=== PATIENT | male | born 1940 | race Caucasian/White ===

== ENCOUNTER 2018-03-12 09:48 | Inpatient (IN) | payer OTHER, MEDICARE ==
[2018-03-12] VITALS (8 sets, daily range): BP systolic 96–155; BP diastolic 56–68; PULSE 88–136; RESP 15–20; TEMP 98.5–99.1; O2SAT 95–98
[~2018-03-12] VITALS: Ht 162.6 cm; Wt 61.4 kg
[2018-03-12 10:39] LABS: AUTOMATED NEUTROPHIL # 8.8 TH/MM3 (1.8-7.7); BASOPHIL % 0.4 % (0.0-2.0); EOSINOPHIL % 0.2 % (0.0-4.0); HEMATOCRIT 35.5 % (39.0-51.0); HEMOGLOBIN 11.2 GM/DL (13.0-17.0); LYMPH % 10.4 % (9.0-44.0); LYMPHOCYTE # 1.2 TH/MM3 (1.0-4.8); MEAN CELL VOLUME 81.8 FL (80.0-100.0); MEAN CORPUSCULAR HEMOGLOBIN 25.8 PG (27.0-34.0); MEAN CORPUSCULAR HGB CONC 31.6 % (32.0-36.0); MONOCYTE # 1.2 TH/MM3 (0-0.9); PLATELET COUNT 305 TH/MM3 (150-450); RED BLOOD COUNT 4.34 MIL/MM3 (4.50-5.90); RED CELL DISTRIBUTION WIDTH 15.2 % (11.6-17.2); WHITE BLOOD COUNT 11.2 TH/MM3 (4.0-11.0)
--- NOTE | 2018-03-12 10:43 | PD ---
HPI Chief Complaint: General Weakness Time Seen by Provider: 10:18 Travel History International Travel<30 days: No Contact w/Intl Traveler<30days: No Traveled to known affect area: No History of Present Illness HPI This patient comes to the ER with his son and . He is extremely vague and unfortunately does not know much of his medical history. He comes for generalized weakness. He could not stand and he could not walk. Duration is 3- 4 days. He has been diagnosed with some type of cancer but is not sure what he thinks it might be bladder cancer but it is spread around to different parts of his body but he does not know where. He has chronic back pain. At does not seem any different than usual. He did have a temperature of 100.3 taken by paramedics. Current temperature 99.1. He denies productive cough or diarrhea or urinary complaints. Symptom severity is moderate. No alleviating factors. He thinks his cancer doctor is Dr. Britton. I put a call into him to see if I can obtain further information. PFSH Past Medical History GERD: Yes Hypertension: Yes Social History Alcohol Use: No Tobacco Use: No (quit 8 years ago) Substance Use: No Allergies-Medications (Allergen,Severity, Reaction): Coded Allergies: celecoxib (Verified Allergy, Unknown, 03/12/18) Review of Systems General / Constitutional: Positive: Fever Eyes: No: Visual changes HENT: No: Headaches Cardiovascular: No: Chest Pain or Discomfort Respiratory: No: Shortness of Breath Gastrointestinal: No: Abdominal Pain Genitourinary: No: Dysuria Musculoskeletal: Positive: Weakness, Pain Skin: No Rash Neurologic: Positive: Weakness Psychiatric: No: Depression Endocrine: No: Polydipsia Hematologic/Lymphatic: No: Easy Bruising Physical Exam Narrative GENERAL: Thin elderly well-developed patient with weakness and back pain . SKIN: Focused skin assessment reveals no rash and nodules. Skin is Warm and dry. HEAD: Atraumatic. Normocephalic. EYES: Pupils equal and round. No scleral icterus. No injection or drainage. ENT: No nasal bleeding or discharge. Mucous membranes pink and moist. NECK: Trachea midline. No JVD. CARDIOVASCULAR: Regular rate and rhythm. No murmur appreciated. RESPIRATORY: No accessory muscle use. Clear to auscultation. Breath sounds equal bilaterally. GASTROINTESTINAL: Abdomen soft, non-tender, nondistended. Hepatic and splenic margins not palpable. MUSCULOSKELETAL: No obvious deformities. No clubbing. No cyanosis. No edema. NEUROLOGICAL: Awake and alert. No obvious cranial nerve deficits. Motor strength exam reveals weakness of the left leg when compared to the right. Normal speech. Sensation exam is not consistent. Sometimes he has diminished sensation in the left leg but other times not. This is tested with both sharp and light touch PSYCHIATRIC: Appropriate mood and affect; insight and judgment is a bit diminished Data Data Last Documented VS Vital Signs Date Time Temp Pulse Resp B/P (MAP) Pulse Ox O2 Delivery O2 Flow Rate FiO2 03/12/18 13:24 15 03/12/18 12:00 94 112/56 (74) 97 Nasal Cannula 2.00 03/12/18 09:55 99.1 Orders Orders Complete Blood Count With Diff (03/12/18 10:18) Comprehensive Metabolic Panel (03/12/18 10:18) Lactic Acid Sepsis Protocol (03/12/18 10:18) Blood Culture (03/12/18 10:18) Iv Access Insert/Monitor (03/12/18 10:18) Oxygen Administration (03/12/18 10:18) Oximetry (03/12/18 10:18) Blood Glucose (03/12/18 10:18) Urinalysis - C+S If Indicated (03/12/18 10:32) Chest, Single Ap (03/12/18 ) Sodium Chlor 0.9% 1000 Ml Inj (Ns 1000 M (03/12/18 10:45) Mri L Spine W&W/O Contrast (03/12/18 ) Mri T Spine W & W/O Contrast (03/12/18 ) Ondansetron Inj (Zofran Inj) (03/12/18 12:30) Hydromorphone Pf Inj (Dilaudid Pf Inj) (03/12/18 12:30) Mri C Spine W&W/O Contrast (03/12/18 ) Gadobenate Dimeglimine Pf Inj (Multihanc (03/12/18 12:33) Urine Culture (03/12/18 15:25) Ct Brain W & W/O Iv Contrast (03/12/18 ) Labs Laboratory Tests Test 03/12/18 10:10 03/12/18 11:05 03/12/18 15:25 Lactic Acid Level 4.1 mmol/L White Blood Count 11.2 TH/MM3 Red Blood Count 4.34 MIL/MM3 Hemoglobin 11.2 GM/DL Hematocrit 35.5 % Mean Corpuscular Volume 81.8 FL Mean Corpuscular Hemoglobin 25.8 PG Mean Corpuscular Hemoglobin Concent 31.6 % Red Cell Distribution Width 15.2 % Platelet Count 305 TH/MM3 Mean Platelet Volume 8.0 FL Neutrophils (%) (Auto) 78.0 % Lymphocytes (%) (Auto) 10.4 % Monocytes (%) (Auto) 11.0 % Eosinophils (%) (Auto) 0.2 % Basophils (%) (Auto) 0.4 % Neutrophils # (Auto) 8.8 TH/MM3 Lymphocytes # (Auto) 1.2 TH/MM3 Monocytes # (Auto) 1.2 TH/MM3 Eosinophils # (Auto) 0.0 TH/MM3 Basophils # (Auto) 0.0 TH/MM3 CBC Comment AUTO DIFF Differential Comment AUTO DIFF CONFIRMED Ovalocytes 1+ Acanthocytes 1+ Blood Urea Nitrogen 34 MG/DL Creatinine 1.83 MG/DL Random Glucose 112 MG/DL Total Protein 8.0 GM/DL Albumin 2.6 GM/DL Calcium Level 10.2 MG/DL Alkaline Phosphatase 95 U/L Aspartate Amino Transf (AST/SGOT) 60 U/L Alanine Aminotransferase (ALT/SGPT) 29 U/L Total Bilirubin 0.5 MG/DL Sodium Level 134 MEQ/L Potassium Level 4.7 MEQ/L Chloride Level 95 MEQ/L Carbon Dioxide Level 30.8 MEQ/L Anion Gap 8 MEQ/L Estimat Glomerular Filtration Rate 36 ML/MIN Urine Color YELLOW Urine Turbidity HAZY Urine pH 6.0 Urine Specific [place] 1.015 Urine Protein 30 mg/dL Urine Glucose (UA) NEG mg/dL Urine Ketones NEG mg/dL Urine Occult Blood MOD Urine Nitrite NEG Urine Bilirubin NEG Urine Urobilinogen LESS THAN 2.0 MG/DL Urine Leukocyte Esterase MOD Urine RBC 52 /hpf Urine WBC 15 /hpf Urine Squamous Epithelial Cells <1 /hpf Urine Bacteria RARE /hpf Urine Hyaline Casts 7 /lpf Urine Granular Casts 7 /lpf Urine Mucus FEW /lpf Microscopic Urinalysis Comment CULTURE INDICATED MDM Medical Decision Making Medical Screen Exam Complete: Yes Emergency Medical Condition: Yes Medical Record Reviewed: Yes Differential Diagnosis Metastatic cancer, cord compression, myelopathy Narrative Course I have reviewed the patient's electronic medical record. Unfortunately there are no dictations on file to review. I spoke with Dr. Britton. He is going to check with his office to see if he is a patient of theirs but he cannot remember him off the top of his head. I have to be concerned with a new onset of myelopathy in this patient with definite leg weakness and history of metastatic cancer and back pain. Therefore I am going to order a workup to evaluate for his low-grade temperature and weakness as well has his potential cord compression with MRI of thoracic and lumbar spine. the patient's back pain is very low, Lumbar region Extensive workup was done. Catheterized urine has 15 white cells. Chest x-ray shows mainly atelectasis. I reviewed the labs. Etiology of the low-grade temperature is not entirely clear. He does have mildly elevated lactate His cervical and thoracic and lumbar spines were evaluated under MRI. He does have a severe medical problems in the thoracic region. He has moderate cord compression and canal stenosis.. I reviewed with the neurosurgeon who came down to the ER. He is reviewed the images and met with patient and and son. He had lengthy discussions with them and they do not want to pursue a surgical approach at this time. Patient will need to be hospitalized. I spoke with hospitalist who will do this. 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 I do not think he will do well. Hospitalist will address whether hospice is an appropriate pathway versus radiation and chemotherapy Critical Care Narrative Aggregate critical care time was 80 minutes. Time to perform other separately billable procedures was not included in the critical care time. My time did not include minutes spent treating any other patients simultaneously or on activities that did not directly contribute to the patient's treatment. The services I provided to this patient were to treat and/or prevent clinically significant deterioration that could result in: Cord compression, permanent neurologic deficit, paralysis I provided critical care services requiring my management, as noted below: Chart data review, documentation time, medication orders and management, vital sign assessments/reviewing monitor data, ordering and reviewing lab tests, ordering and interpreting/reviewing x-rays and diagnostic studies, care of the patient and discussion of the patient with the admitting physicians. Diagnosis Primary Impression: Spinal cord compression due to malignant neoplasm metastatic to spine Additional Impressions: Fever Qualified Codes: R50.9 - Fever, unspecified Myelopathy Admitting Information Admitting Physician Requests: Admit Manuel Jordan MD Mar 12, 2018 10:43
[2018-03-12] MEDS ORDERED: SODIUM CHLOR 0.9% 1000 ML INJ 1,000 ML IV ONE (10:45)
[2018-03-12 11:10] LABS: LACTIC ACID SEPSIS PROTOCOL 4.1 mmol/L (0.4-2.0)
--- NOTE | 2018-03-12 11:11 | RADRPT ---
EXAM DATE/TIME: 03/12/2018 10:33 [facility] COMPARISON: No previous studies available for comparison. INDICATIONS : Fever. MEDICAL HISTORY : Hypertension. Gastroesophageal reflux disease. SURGICAL HISTORY : None. ENCOUNTER: Initial ACUITY: 1 day PAIN SCORE: 0/10 LOCATION: Bilateral chest FINDINGS: There is a poor inspiratory result. The heart is normal. Bibasilar atelectasis and/or infiltrates are noted. Degenerative changes and scoliosis of the thoracic spine are noted. There is marked narrowing of the right subacromial space suggesting rotator cuff pathology. CONCLUSION: 1. Bibasilar atelectasis and/or infiltrates. 2. Marked narrowing of the right subacromial space suggesting rotator cuff pathology. 3. Degenerative changes and scoliosis of the thoracic spine. Shekhar Doan MD on March 12, 2018 at 11:07 Board Certified Radiologist. This report was verified electronically.
[2018-03-12 11:26] LABS: ACANTHOCYTES 1+ (NORMAL); OVALOCYTES 1+ (NORMAL)
[2018-03-12 11:46] LABS: ALBUMIN 2.6 GM/DL (3.4-5.0); ALT (GPT) 29 U/L (12-78); AST (GOT) 60 U/L (15-37); BICARBONATE 30.8 MEQ/L (21.0-32.0); BLOOD UREA NITROGEN 34 MG/DL (7-18); CALCIUM 10.2 MG/DL (8.5-10.1); CHLORIDE 95 MEQ/L (98-107); CREATININE 1.83 MG/DL (0.60-1.30); GLOMERULAR FILTRATION RATE 36 ML/MIN (>89); GLUCOSE,RANDOM 112 MG/DL (74-106); SODIUM (NA) 134 MEQ/L (136-145)
[2018-03-12 11:47] LABS: ALKALINE PHOSPHATASE 95 U/L (45-117); TOTAL BILIRUBIN ADULT 0.5 MG/DL (0.2-1.0)
[2018-03-12] MEDS ORDERED: ONDANSETRON HCL 4 MG/2 ML VIAL IV ONE (12:30)
[2018-03-12] MEDS ORDERED: HYDROmorphone HCL PF 2 MG/ML VIAL IVS ONE (12:30)
[2018-03-12] MEDS ORDERED: GADOBENATE DIM PF 529 MG/ML 5 ML VIAL (for RAD MRI) IV ONE (12:33)
--- NOTE | 2018-03-12 14:46 | RADRPT ---
EXAM DATE/TIME: 03/12/2018 12:25 [facility] COMPARISON: No previous studies available for comparison. INDICATIONS : Inability to ambulate. Hx of bladder ca, CONTRAST: 12 cc Multihance (gadobenate) IV MEDICAL HISTORY : Carcinoma, bladder. Gastroesophageal reflux disease. SURGICAL HISTORY : Right foot. ENCOUNTER: Initial ACUITY: 3 day PAIN SCORE: 5/10 LOCATION: neck TECHNIQUE: Multiplanar, multisequence MRI examination of the cervical spine was performed. FINDINGS: VERTEBRAE: Normal vertebral body height. Homogeneous marrow signal. ALIGNMENT: No evidence of subluxation. CORD: There is moderate canal stenosis at the C3-4 and C5-6 levels secondary to disc bulge and posterior el ement hypertrophy POST FOSSA: The cerebellar tonsils are normal in position. POST-CONTRAST: No abnormal areas of enhancement are seen. C2-C3: The thecal sac has a normal configuration. There is no evidence of disc herniation or spinal canal stenosis. The neural foramina are patent bilaterally. C3-C4: Broad-based bulge at C3-4 level with a moderate stenosis.. C4-C5: The thecal sac has a normal configuration. There is no evidence of disc herniation or spinal canal s tenosis. The neural foramina are patent bilaterally. C5-C6: Broad-based bulge at T5-6 level causes moderate canal stenosis. C6-C7: The thecal sac has a normal configuration. There is no evidence of disc herniation or spinal canal s tenosis. The neural foramina are patent bilaterally. C7-T1: The thecal sac has a normal configuration. There is no evidence of disc herniation or spinal canal s tenosis. The neural foramina are patent bilaterally. CONCLUSION: Moderate canal stenoses at the C3-4 and C5-6 levels. No evidence of cord edema. I don't see any abnor mal areas of enhancement to confirm metastatic disease to the cervical spine. James Lucas MD on March 12, 2018 at 14:42 Board Certified Radiologist. This report was verified electronically.
--- NOTE | 2018-03-12 15:04 | RADRPT ---
EXAM DATE/TIME: 03/12/2018 12:25 [facility] COMPARISON: No previous studies available for comparison. INDICATIONS : Inability to ambulate. Weakness with hx of bladder ca. CONTRAST: 12 cc Multihance (gadobenate) IV MEDICAL HISTORY : Carcinoma, bladder. Hypertension. Gastroesophageal reflux disease. SURGICAL HISTORY : Right foot. ENCOUNTER: Initial ACUITY: 3 day PAIN SCORE: 5/10 LOCATION: back TECHNIQUE: Multiplanar multisequence MRI of the thoracic spine was performed. FINDINGS: There is evidence of almost complete replacement of the marrow of the T12 vertebral body with expansi on of the vertebral body, left pedicle and left facet joint. There is retropulsion of the posterior w all of the vertebral body measuring approximately 8 mm as well as moderate to severe spinal stenosis and moderate cord compression at this level. Mild compression deformity of the T12 vertebral body is also noted. The findings are suggestive of metastatic disease at the T12 level. T1-T2: There is mild broad-based left paracentral disc bulge resulting in effacement of the anterior thecal sac but no spinal stenosis. T2-T3: The thecal sac has a normal diameter. No evidence of disc bulge or protrusion. T3-T4: The thecal sac has a normal diameter. No evidence of disc bulge or protrusion. T4-T5: The thecal sac has a normal diameter. No evidence of disc bulge or protrusion. T5-T6: The thecal sac has a normal diameter. No evidence of disc bulge or protrusion. T6-T7: The thecal sac has a normal diameter. No evidence of disc bulge or protrusion. T7-T8: The thecal sac has a normal diameter. No evidence of disc bulge or protrusion. T8-T9: The thecal sac has a normal diameter. No evidence of disc bulge or protrusion. T9-T10: The thecal sac has a normal diameter. No evidence of disc bulge or protrusion. T10-T11: The thecal sac has a normal diameter. No evidence of disc bulge or protrusion. T11-T12: The thecal sac has a normal diameter. No evidence of disc bulge or protrusion. T12-L1: The thecal sac has a normal diameter. No evidence of disc bulge or protrusion. CONCLUSION: 1. Almost complete replacement of the marrow of the T12 vertebral body with expansion of the vertebra l body, left pedicle and left facet joint. There is retropulsion of the posterior wall of the vertebr al body measuring approximately 8 mm as well as moderate to severe spinal stenosis and moderate cord compression at this level. Mild compression deformity of the T12 vertebral body is also noted. The fi ndings are suggestive of metastatic disease at the T12 level. 2. Mild broad-based left paracentral disc bulge at T1-2 resulting in effacement of the anterior theca l sac but no spinal stenosis. Shekhar Doan MD on March 12, 2018 at 14:54 Board Certified Radiologist. This report was verified electronically.
--- NOTE | 2018-03-12 15:18 | RADRPT ---
EXAM DATE/TIME: 03/12/2018 12:25 [facility] COMPARISON: MRI THORACIC SPINE W & W/O CONTRAST, March 12, 2018, 12:25. INDICATIONS : Inability to ambulate. Weakness with a hx of bladder ca. CONTRAST: 12 cc Multihance (gadobenate) IV MEDICAL HISTORY : Carcinoma, bladder. Hypertension. Gastroesophageal reflux disease. SURGICAL HISTORY : Right foot. ENCOUNTER: Initial ACUITY: 3 day PAIN SCORE: 5/10 LOCATION: back TECHNIQUE: Multiplanar multisequence MRI of the lumbar spine was performed with and without contrast. FINDINGS: There is diffuse marrow infiltration and expansion of the T12 vertebral body, left pedicle and left f acet with cord compression at this level consistent with metastatic disease which is described in mor e detail in the MRI of the thoracic spine report done the same day. There is an expansile mass arisin g from the spinous process of L3 also consistent with probable metastatic lesion. There is grade I an terolisthesis of L4 in relation to L5 and L3 in relation to L2. Disc space narrowing is noted at L1-2 , L2-3 and L3-4 and L4-5. L1-2: There is no spinal stenosis, disc bulge or herniation. The bilateral neural foraminal are patent. The facet joints and ligaments are unremarkable. L2-3: There is a minimal diffuse disc osteophyte complex as well as facet joint hypertrophy bilaterally res ulting in mild to moderate foraminal narrowing but no spinal stenosis. No focal disc herniation is no júnior. L3-4: There is moderate circumferential spinal stenosis and bilateral foraminal narrowing secondary to comb ination of diffuse disc osteophyte complex and facet joint hypertrophy and ligamentous laxity. No foc al disc herniation is noted. L4-5: There is severe circumferential spinal stenosis and moderate to severe bilateral foraminal narrowing secondary to a combination of grade I anterolisthesis of L4 in relation to L5, diffuse disc osteophyt e complex, facet joint hypertrophy and ligamentous laxity. No focal disc herniation is noted. L5-S1: There is a minimal diffuse disc bulge as well as facet joint hypertrophy bilaterally resulting in no significant spinal stenosis or neural foraminal narrowing. No focal disc herniation is noted. CONCLUSION: 1. Expansile masses involving the spinous process of L3 as well as the vertebral body, left pedicle a nd left facet of T12 consistent with metastatic disease. 2. Severe spinal stenosis and moderate to severe bilateral foraminal narrowing at L4-5. 3. Moderate spinal stenosis and moderate bilateral foraminal narrowing at L3-L4. 4. Mild to moderate bilateral foraminal narrowing at L2-3. 5. Grade I anterolisthesis of L4 in relation to L5 and L3 in relation to L2. 6. Diffuse degenerative disc disease throughout the lumbar spine. Shekhar Doan MD on March 12, 2018 at 15:02 Board Certified Radiologist. This report was verified electronically.
[2018-03-12 15:59] LABS: BACTERIA, URINE RARE /hpf; BILIRUBIN, URINE NEG (NEG); BLOOD, URINE MOD (NEG); GLUCOSE,URINE NEG (NEG); HYALINE CAST, URINE 7 /lpf (RARE); KETONE, URINE NEG (NEG); MUCUS URINE FEW /lpf (OCC); NITRITE,URINE NEG (NEG); SQUAMOUS EPITHELIAL CELL URINE <1 /hpf (0-5); URINE COLOR YELLOW (YELLW/STRAW); URINE LEUKOCYTE ESTERASE MOD (NEG)
--- NOTE | 2018-03-12 17:26 | HHI.NSPN ---
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 Lumbar involvement as well as spinal stenosis. Generalized metastatic disease. Recommendations: Have discussed the findings of the MRI with the and the son. Presently the patient is hallucinating is unable to make a decision. Have presented options of treatment to include surgical resection at the level of T12 and fusion. The family does not want to proceed with surgery at the present time. They understand that the patient can become completely paraplegic if no treatment is initiated at the present time Would recommend evaluation by oncology and radiation therapy. Should also have a CT of the brain with and without contrast or MRI of the brain because of his mental status. Discussed with the ER physician. Josué Birmingham MD Mar 12, 2018 17:26
[2018-03-12] MEDS ORDERED: HYDROmorphone HCL PF 0.5 MG/0.5 ML SYRINGE IV PUSH PRN ×3 (17:30)
[2018-03-12] MEDS ORDERED: ONDANSETRON HCL 4 MG/2 ML VIAL IVP PRN (17:30)
[2018-03-12] MEDS ORDERED: ACETAMINOPHEN 325 MG TAB PO PRN ×2 (17:30)
[2018-03-12] MEDS ORDERED: oxyCODONE/ACETAMINOPHEN 5 MG/325 MG TAB PO PRN (17:30)
[2018-03-12] MEDS ORDERED: NALOXONE HCL 0.4 MG/ML AMP IV PUSH PRN (17:30)
[2018-03-12] MEDS ORDERED: SENNOSIDES 8.6 MG TAB PO PRN (17:30)
[2018-03-12] MEDS ORDERED: SODIUM CHLORIDE 0.9% FLUSH 10 ML FLUSH IV FLUSH PRN (17:30)
[2018-03-12] MEDS ORDERED: BISACODYL 10 MG SUPP RECTAL PRN (17:30)
[2018-03-12] MEDS ORDERED: LACTULOSE SYRUP 20 GM/30 ML CUP PO PRN (17:30)
[2018-03-12] MEDS ORDERED: MAGNESIUM HYDROXIDE SUSP 30 ML CUP PO PRN (17:30)
[2018-03-12] MEDS ORDERED: cloNIDine HCL 0.1 MG TAB PO PRN (17:30)
[2018-03-12] MEDS ORDERED: METOCLOPRAMIDE HCL 10 MG/2 ML VIAL IV PUSH PRN (17:30)
[2018-03-12] MEDS ORDERED: PANTOPRAZOLE SOD 40 MG DELAYED RELEASE TAB PO ONE (17:30)
[2018-03-12] MEDS ORDERED: ENOXAPARIN SODIUM 40 MG/0.4 ML SYRINGE SQ SCH (18:00)
--- NOTE | 2018-03-12 18:02 | MB ---
cc: Josué TONY Jorge DATE: 03/12/2018 CHIEF COMPLAINT: Weakness. HISTORY OF PRESENT ILLNESS: This is a 77-year-old male patient diagnosed with bladder cancer who presents to the ER with a 9-day history of not being able to ambulate. The reports that the patient has been hallucinating on and off and at times becomes agitated. He also complains of pain in the back, but has history of chronic back pain. He was undergoing evaluation because of bladder cancer. He has had problems with urination and with defecation and now presents to the ER for further evaluation. reports he is a stage 4. PAST MEDICAL HISTORY: Remarkable for reflux and for hypertension. ALLERGIES: HE HAS AN ALLERGY TO CELEBREX. MEDICATIONS: 1. Lisinopril. 2. Omeprazole. 3. Aspirin. 4. Atenolol. 5. Atorvastatin. 6. Gabapentin. 7. Hydrocodone. 8. Magnesium 9. Sertraline 10. Multiple vitamins. SOCIAL HISTORY: He does not use alcohol, does not use tobacco at the present time. He quit approximately 8 years ago. Denies any substance abuse. REVIEW OF SYSTEMS: Not obtainable at the present time. PHYSICAL EXAMINATION: VITAL SIGNS: Temperature of 99.1, pulse of 94, respirations of 15, pulse oximetry of 97, blood pressure 112/56. GENERAL: Shows a thin male in mild distress, somewhat agitated and rambling. HEENT: Unremarkable. NECK: Supple. Good carotid pulses bilaterally. CHEST: Symmetrical. LUNGS: Clear. HEART: Shows a regular rhythm with normal heart sounds. ABDOMEN: Soft and nontender. BACK: examination of the back shows tenderness posteriorly about the lumbar thoracic junction. SKIN: Clear. NEUROLOGIC: The patient is alert and awake. He follows commands well. He is confused. He is somewhat agitated and tends to ramble. He has a fluent speech. He recognizes his family. Cranial nerves 2-12 are intact. Motor exam is 5+/5 in the upper extremities. He appears to have a proximal weakness at about 3+/5 in the right leg and about 2-3+/5 in the left leg and distally his strength is about a 2-3+/5. Sensory exam is intact to touch. Deep tendon reflexes are 2+ in the upper extremities and 2+ at the knees and 1+ at the ankles. IMAGING STUDIES: Review of an MRI of the cervical spine shows evidence of degenerative changes with evidence of stenosis at C3-C4 and C5-C6. MRI of the thoracic spine shows severe involvement of the vertebral body at the level of T12 with expansion of the posterior wall and producing moderate cord compression and severe stenosis. There appears to be also involvement of the posterior structures of T12 with involvement of the paraspinal area MRI of the lumbar spine shows involvement of the spinous process of L3 and T12 as well with some spinal stenosis at the level of L4-L5 and some anterolisthesis of L4-5 and L2-3 and degenerative disk disease throughout. OVERALL IMPRESSION: 1. 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 2. Generalized metastatic disease Findings of the MRI have been discussed with the and the son because of the patient's present mental state. Surgical intervention has been recommended. They have declined surgical procedure at this time. They understand that the patient can become completely paralyzed and paraplegic without recovery if he does not undergo surgery presently. Because of the patient's mental status, I would recommend a CT scan of the brain with and without contrast or MRI of the brain. He should undergo evaluation by oncology and radiation therapy. Josué HAGER/ , 05:36 PM , 06:01 PM MTDSheri
[2018-03-12] MEDS ORDERED: ZOLO100T PO (18:09)
[2018-03-12] MEDS ORDERED: MULT-65 PO (18:09)
[2018-03-12] MEDS ORDERED: CYAN25005 PO (18:09)
[2018-03-12] MEDS ORDERED: LISI2.5T3 PO (18:09)
[2018-03-12] MEDS ORDERED: CINN500C2 PO (18:09)
[2018-03-12] MEDS ORDERED: MAGN400T24 PO (18:09)
[2018-03-12] MEDS ORDERED: OMEP20TA93 PO (18:09)
[2018-03-12] MEDS ORDERED: SULF500 PO (18:09)
[2018-03-12] MEDS ORDERED: E 101000 PO (18:09)
[2018-03-12] MEDS ORDERED: VITA250T3 PO (18:09)
[2018-03-12] MEDS ORDERED: NEUR600T PO (18:09)
[2018-03-12] MEDS ORDERED: HAIR,SKIN,NAILS PO (18:09)
[2018-03-12] MEDS ORDERED: VITA1000 PO (18:09)
[2018-03-12] MEDS ORDERED: FISH OIL 360MG PO (18:09)
[2018-03-12] MEDS ORDERED: METO1TAB43 PO (18:09)
[2018-03-12] MEDS ORDERED: ATOR40TA16 PO (18:09)
[2018-03-12] MEDS ORDERED: ASPI81TA16 PO (18:09)
[2018-03-12] MEDS ORDERED: FISH100020 PO (18:12)
[2018-03-12] MEDS: SODIUM CHLOR 0.9% 1000 ML INJ 1,000 ML IV SCH (18:50)
--- NOTE | 2018-03-12 19:32 | HHI.HP ---
HPI Service [facility] Primary Care Physician Yumiko Malone M.D. Admission Diagnosis spinal cord compression from malig met lesion Diagnoses: (1) Encephalopathy Diagnosis: Principal (2) Generalized weakness Diagnosis: Principal (3) Spinal cord compression due to malignant neoplasm metastatic to spine Diagnosis: Principal (4) UTI (urinary tract infection) Diagnosis: Principal (5) Urothelial cancer Diagnosis: Principal (6) Renal insufficiency Diagnosis: Principal (7) Lactic acidosis Diagnosis: Principal Travel History International Travel<30 Days: No Contact w/Intl Traveler <30 Da: No Traveled to Known Affected Are: No History of Present Illness This is a 77-year-old male with PMH of Urothelial CA, HTN and GERD who was brought to the ER by his son and for complaints of generalized weakness in addition to AMS. History is very limited as pt is unable to provide much information, no family available at this time. Per records, pt following w/ Dr. Luque w/ Urology, s/p Cystoscopy w/ TURBT 03/03/18, h/o Urothelial CA for which he follows w/ Dr. Britton. Pt has apparently had progressive weakness, now unable to ambulate. Also noted to be more confused. On arrival, BP 97/65, HR 113, O2 sat 96% on 2L NC, TAB 9.1. WBC 11.2. Creatinine 1.83, no previous labs for comparison. Lactic Acid 4.1. UA positive for UTI. CXR with bibasilar atelectasis. MRI C-spine moderate canal stenosis C3-C4 and C5-C6, no evidence of cord edema. MRI T-spine almost complete replacement of marrow of T12 vertebral body with expansion, retropulsion and posterior wall of vertebral body, mild compression deformity T12, findings suggestive of metastatic disease at T12 level. MRI L-spine expansile masses involving spinous processes of L3 is well as vertebral body, severe spinal stenosis and moderate severe bilateral foraminal narrowing L4-L5. S/p eval by Dr. Birmingham w/ NxSx, recommendation for surgical intervention, however family has declined surgical intervention. Review of Systems Except as stated in HPI: all other systems reviewed are Neg ROS: 14 point review of systems otherwise negative. Past Family Social History Past Medical History PMH: Urothelial CA, HTN and GERD Past Surgical History PAST SURGICAL HISTORY: Right Foot Surgery Allergies: Coded Allergies: celecoxib (Verified Allergy, Unknown, 03/12/18) Family History PAST FAMILY HISTORY: Reviewed. No h/o DM or CAD Social History PAST SOCIAL HISTORY: Negative for alcohol or drugs. Quit tobacco 8 years ago. Physical Exam Vital Signs Vital Signs Date Time Temp Pulse Resp B/P (MAP) Pulse Ox O2 Delivery O2 Flow Rate FiO2 03/12/18 19:20 88 20 120/57 (78) 98 Nasal Cannula 2.00 03/12/18 17:30 89 15 106/60 (75) 97 Nasal Cannula 2.00 03/12/18 13:30 90 15 104/62 (76) 97 Nasal Cannula 2.00 03/12/18 13:24 15 03/12/18 12:00 94 15 112/56 (74) 97 Nasal Cannula 2.00 03/12/18 11:00 102 16 96/65 (75) 96 Nasal Cannula 2.00 03/12/18 10:00 112 16 98/68 (78) 98 Nasal Cannula 2.00 03/12/18 09:55 99.1 113 16 97/65 (76) 98 03/12/18 09:55 110 16 96 Nasal Cannula 2.00 03/12/18 09:55 96 Nasal Cannula 2.00 Physical Exam PE: GENERAL: Thin elderly white male in no acute distress, fidgety, anxious. Confused. HEENT: PERRLA, EOMI. No scleral icterus or conjunctival pallor. No lid lag or facial droop. CARDIOVASCULAR: Regular rate and rhythm. No obvious murmurs to auscultation. No chest tenderness to palpation. RESPIRATORY: No obvious rhonchi or wheezing. Clear to auscultation. Breath sounds equal bilaterally. GASTROINTESTINAL: Abdomen soft, non-tender, nondistended. BS normal. MUSCULOSKELETAL: Extremities without clubbing, cyanosis, or edema. No obvious deformities. NEUROLOGICAL: Awake, alert, confused. No focal neurologic deficits. Moving both upper and lower extremities spontaneously. Laboratory Laboratory Tests Test 03/12/18 10:10 03/12/18 11:05 03/12/18 15:25 Lactic Acid Level 4.1 White Blood Count 11.2 Red Blood Count 4.34 Hemoglobin 11.2 Hematocrit 35.5 Mean Corpuscular Volume 81.8 Mean Corpuscular Hemoglobin 25.8 Mean Corpuscular Hemoglobin Concent 31.6 Red Cell Distribution Width 15.2 Platelet Count 305 Mean Platelet Volume 8.0 Neutrophils (%) (Auto) 78.0 Lymphocytes (%) (Auto) 10.4 Monocytes (%) (Auto) 11.0 Eosinophils (%) (Auto) 0.2 Basophils (%) (Auto) 0.4 Neutrophils # (Auto) 8.8 Lymphocytes # (Auto) 1.2 Monocytes # (Auto) 1.2 Eosinophils # (Auto) 0.0 Basophils # (Auto) 0.0 CBC Comment AUTO DIFF Differential Comment AUTO DIFF CONFIRMED Ovalocytes 1+ Acanthocytes 1+ Blood Urea Nitrogen 34 Creatinine 1.83 Random Glucose 112 Total Protein 8.0 Albumin 2.6 Calcium Level 10.2 Alkaline Phosphatase 95 Aspartate Amino Transf (AST/SGOT) 60 Alanine Aminotransferase (ALT/SGPT) 29 Total Bilirubin 0.5 Sodium Level 134 Potassium Level 4.7 Chloride Level 95 Carbon Dioxide Level 30.8 Anion Gap 8 Estimat Glomerular Filtration Rate 36 Urine Color YELLOW Urine Turbidity HAZY Urine pH 6.0 Urine Specific Horicon 1.015 Urine Protein 30 Urine Glucose (UA) NEG Urine Ketones NEG Urine Occult Blood MOD Urine Nitrite NEG Urine Bilirubin NEG Urine Urobilinogen LESS THAN 2.0 Urine Leukocyte Esterase MOD Urine RBC 52 Urine WBC 15 Urine Squamous Epithelial Cells <1 Urine Bacteria RARE Urine Hyaline Casts 7 Urine Granular Casts 7 Urine Mucus FEW Microscopic Urinalysis Comment CULTURE INDICATED Date/Time Source Procedure Growth Status 03/12/18 11:05 Blood Peripheral Aerobic Blood Culture Pending Received 03/12/18 11:05 Blood Peripheral Anaerobic Blood Culture Pending Received 03/12/18 15:25 Urine Clean Catch Urine Culture Pending Received Result Diagram: 03/12/18 1105 03/12/18 1105 Caprini VTE Risk Assessment Caprini VTE Risk Assessment: No/Low Risk (score <= 1) Caprini Risk Assessment Model Point Value = 1 Point Value = 2 Point Value = 3 Point Value = 5 Age 41-60 Minor surgery BMI > 25 kg/m2 Swollen legs Varicose veins or History of unexplained or recurrent spontaneous Oral contraceptives or hormone replacement Sepsis (< 1 month) Serious lung disease, including pneumonia (< 1 month) Abnormal pulmonary function Acute myocardial infarction Congestive heart failure (< 1 month) History of inflammatory bowel disease Medical patient at bed rest Age 61-74 Arthroscopic surgery Major open surgery (> 45 min) Laparoscopic surgery (> 45 min) Malignancy Confined to bed (> 72 hours) Immobilizing plaster cast Central venous access Age >= 75 History of VTE Family history of VTE Factor V Leiden Prothrombin [id number] Lupus anticoagulant Anticardiolipin antibodies Elevated serum homocysteine Heparin-induced thrombocytopenia Other congenital or acquired thrombophilia Stroke (< 1 month) Elective arthroplasty Hip, pelvis, or leg fracture Acute spinal cord injury (< 1 month) Prophylaxis Regimen Total Risk Factor Score Risk Level Prophylaxis Regimen 0-1 Low Early ambulation 2 Moderate Order ONE of the following: *Sequential Compression Device (SCD) *Heparin 5000 units SQ BID 3-4 Higher Order ONE of the following medications: *Heparin 5000 units SQ TID *Enoxaparin/Lovenox 40 mg SQ daily (WT < 150 kg, CrCl > 30 mL/min) *Enoxaparin/Lovenox 30 mg SQ daily (WT < 150 kg, CrCl > 10-29 mL/min) *Enoxaparin/Lovenox 30 mg SQ BID (WT < 150 kg, CrCl > 30 mL/min) AND/OR *Sequential Compression Device (SCD) 5 or more Highest Order ONE of the following medications: *Heparin 5000 units SQ TID (Preferred with Epidurals) *Enoxaparin/Lovenox 40 mg SQ daily (WT < 150 kg, CrCl > 30 mL/min) *Enoxaparin/Lovenox 30 mg SQ daily (WT < 150 kg, CrCl > 10-29 mL/min) *Enoxaparin/Lovenox 30 mg SQ BID (WT < 150 kg, CrCl > 30 mL/min) AND *Sequential Compression Device (SCD) Assessment and Plan Problem List: (1) Encephalopathy ICD Code: G93.40 - Encephalopathy, unspecified (2) Generalized weakness ICD Code: R53.1 - Weakness (3) Spinal cord compression due to malignant neoplasm metastatic to spine ICD Code: G95.20 - Unspecified cord compression; C79.51 - Secondary malignant neoplasm of bone Status: Acute (4) Lactic acidosis ICD Code: E87.2 - Acidosis (5) Renal insufficiency ICD Code: N28.9 - Disorder of kidney and ureter, unspecified (6) UTI (urinary tract infection) ICD Code: N39.0 - Urinary tract infection, site not specified (7) Urothelial cancer ICD Code: C68.9 - Malignant neoplasm of urinary organ, unspecified Assessment and Plan A/P: 1. Encephalopathy: +confusion on exam, baseline unknown, family reports worsening confusion over 3-4 days, +UTI possibly contributing to confusion. In light of metastatic CA, will obtain MRI Brain to eval for possible DRUG AND ALCOHOL TREATMENT SPECIALIST mets. Hold anticoagulation for now. Neuro checks. 2. Generalized Weakness: progressive, now unable to ambulate per report, likely secondary to T12 compression from extensive metastatic disease. PT for eval/tx. 3. T12 Compression: secondary to underlying metastatic disease, MRI T/L-Spine w/ almost complete replacement of marrow of T12 by metastatic disease, severe spinal stenosis L4-5, s/p eval by Dr. Birmingham, recommendation for surgical intervention to prevent complete paralysis, however family has declined. 4. Urothelial CA: following w/ Dr. Luque w/ Urology and Dr. Britton as outpatient, s/p eval by Dr. Lerner, will follow up recommendations. 5. Lactic Acidosis: Lactate 4.1, s/p IVF, will recheck Lactic Acid for trend. 6. UTI: U/a w/ UTI, start Rocephin IV, IVF for hydration. 7. Renal Insufficiency: Creatinine 1.83, no previous labs for comparison, IVF for hydration, repeat labs in a.m. 8. DVT Prophylaxis: Hold anticoagulation for MRI Brain to eval for DRUG AND ALCOHOL TREATMENT SPECIALIST mets. 9. Social work for d/c planning as needed. 10. Case discussed w/ ER physician at length, labs/records/imaging reviewed by me. Physician Certification 2 Midnight Certification Type: Admission for Inpatient Services Order for Inpatient Services The services are ordered in accordance with Medicare regulations or non- Medicare payer requirements, as applicable. In the case of services not specified as inpatient-only, they are appropriately provided as inpatient services in accordance with the 2-midnight benchmark. Estimated LOS (days): 2 days is the estimated time the patient will need to remain in the hospital, assuming treatment plan goals are met and no additional complications. Post-Hospital Plan: Not yet determined Cherie Lu MD Mar 12, 2018 19:32
[2018-03-12] MEDS: SODIUM CHLORIDE 0.9% FLUSH 10 ML FLUSH IV FLUSH SCH (21:00)
[2018-03-12] MEDS ORDERED: cefTRIAXone INJ 1,000 MG in SODIUM CHLORIDE 0.9% INJ 100 ML IV SCH (21:00)
[2018-03-12] MEDS: DOCUSATE SODIUM 50 MG/SENNA 8.6 MG TAB PO SCH (21:00)
[2018-03-12] MEDS: oxyCODONE/ACETAMINOPHEN 10 MG/325 MG TAB PO PRN (22:01)
[2018-03-12] MEDS ORDERED: LORazepam 2 MG/ML VIAL IV PUSH ONE (23:15)
[2018-03-13] VITALS (11 sets, daily range): BP systolic 140–154; BP diastolic 74–86; PULSE 77–126; RESP 19–21; TEMP 98.1–99; O2SAT 94–97
--- NOTE | 2018-03-13 00:55 | MB ---
cc: Saniya Lerner MD DATE: 03/12/2018 CHIEF COMPLAINT: 1. Bilateral lower extremity weakness. 2. Spinal cord compression. 3. Metastatic bladder cancer. HISTORY OF PRESENT ILLNESS: Mr. Moore is a 77-year-old gentleman with a history of chronic back pain, hypertension, hyperlipidemia, renal stones and anxiety who has previously established care in clinic with my colleague, Dr. Britton, who presents to the emergency room for further evaluation and management of bilateral lower extremity weakness. His cancer history began when he began to have intermittent hematuria over the past 3 years. Unfortunately, he did not seek medical attention. Approximately January of 2017, he began to feel fatigue and weakness. Around 09/2017 he was getting progressively worse and having unintentional weight loss and persistent hematuria. He was referred to Dr. Michaels. CT scan showed an isodense mass in the right posterolateral aspect of the bladder near the right distal ureter. He was also noted to have large multicystic multiloculated masses in the right kidney. There were also multiple pulmonary nodules noted. CT scan of the chest confirmed numerous noncalcified pulmonary nodules, mostly subcentimeter, largest measuring 1.2 cm in the lingula. He was then sent for a PET scan. PET scan found a 4.1 cm right-sided bladder mass causing right-sided hydroureter with diffuse hypermetabolism. There was also abnormal morphology of the enlarged right kidney with perinephric nodularity and right retroperitoneal nodularity concerning for high-grade obstruction with tumor involvement. There were multiple lung nodules with a minimally to moderately hypermetabolic uptake concerning for pulmonary metastasis. There was also a hypermetabolic lytic lesion in T12 vertebral body and L3 spinous process. There also were a few hypermetabolic hepatic lesions concerning for hepatic metastatic disease. From my review of the records that we have available, we do not have a pathologic of urothelial cancer. Upon my seeing him on Thursday evening, there is no family present at baseline and the patient is confused and encephalopathic. Much of the history is obtained from chart review from [facility]. The patient was brought to the emergency room with general weakness and altered mental status. Per record review, he had a TURBT on 03/03 which was found to be urothelial cancer. He has had progressively worsening weakness and is now unable to ambulate and is very confused. MRI of the T-spine showed almost complete replacement of the marrow of the T12 vertebral body with extension retropulsion and posterior wall of the vertebral body mild compression deformity suggestive of metastatic disease at T12. MRI of the L-spine with expansile mass involving the spinous process of L3 as well as the vertebral body, severe spinal stenosis, and moderate to severe bilateral foraminal narrowing. He has been seen by the neurosurgery service, and per report, family has declined surgical intervention. LABORATORY STUDIES: White blood cell count of 11.2, hemoglobin 11.2, platelet count 305,000 with an ANC of 8.8. Chemistry studies with a lactic acid of 4.1, total bilirubin of 0.5, AST 60, ALT 29, alkaline phosphatase is 95, albumin is 2.6, calcium is 10.2 with a corrected calcium of 11.2, creatinine is 1.83. Baseline with white blood cell count 6.2, hemoglobin 11.3, platelet count 278, creatinine 1.24, and calcium 9.8; this is from labs that were drawn in early February. REVIEW OF SYSTEMS: Unable to obtain due to patient's mental status. PAST MEDICAL HISTORY: 1. Anxiety. 2. Chronic back pain. 3. Hypertension. 4. Hyperlipidemia. 5. Renal stones. PAST SURGICAL HISTORY: Colonoscopy, right foot surgery, TURBT. FAMILY HISTORY: Mother is . Father is from prostate cancer. SOCIAL HISTORY: He is . Former smoker. No history of alcohol use. ALLERGIES: CELEBREX. PHYSICAL EXAMINATION: GENERAL: Thin, chronically ill-appearing man in no distress. HEENT: Head is normocephalic, atraumatic. Eyes: PERRLA, EOMI. No scleral icterus. NECK: Supple. No lymphadenopathy. HEMATOLOGIC: No bruising. RESPIRATORY: Clear to auscultation bilaterally. CARDIOVASCULAR: Regular rate and rhythm. No murmurs. LUNGS: Clear to auscultation bilaterally. ABDOMEN: Soft, nontender, nondistended. Bowel sounds present. Extremities with no edema. NEUROLOGICAL: Bilateral lower extremity weakness, unable to lift either leg up off the bed. PSYCHIATRIC: Answers questions inappropriately, confused, oriented to self. ASSESSMENT AND PLAN: 1. Metastatic urothelial cancer of the bladder: Do not currently have pathology report, but this is per report from Dr. Michaels's notes from recent procedure. Family has declined surgical intervention. At this point in time, the patient is unlikely to be a candidate for aggressive therapy. Unable to discuss goals of care with the patient, and family is not at bedside. Palliative care consult in place. Agree with this consult. 2. Encephalopathy: MRI brain is pending. Primary team notes that the patient has a UTI, which could certainly be contributing to his mental status. 3. T12 compression fracture and spinal cord compromise due to underlying metastatic disease: The family has declined surgical intervention. 4. Elevated creatinine, elevated calcium: Agree with IV fluids. Inpatient oncology team will continue to follow. MD TAMIKA Fox/RC , 10:47 PM , 12:54 AM MTDD
[2018-03-13] MEDS: SODIUM CHLOR 0.9% 1000 ML INJ 1,000 ML IV SCH ×3 (04:00→23:59)
[2018-03-13] MEDS: LORazepam 2 MG/ML VIAL IV PUSH PRN ×3 (04:22→08:31)
[2018-03-13 05:22] LABS: BASOPHIL # 0.1 TH/MM3 (0-0.2); BASOPHIL % 0.9 % (0.0-2.0); EOSINOPHIL # 0.1 TH/MM3 (0-0.4); EOSINOPHIL % 0.7 % (0.0-4.0); HEMATOCRIT 29.7 % (39.0-51.0); HEMOGLOBIN 9.8 GM/DL (13.0-17.0); LYMPH % 13.3 % (9.0-44.0); LYMPHOCYTE # 1.1 TH/MM3 (1.0-4.8); MEAN CELL VOLUME 80.4 FL (80.0-100.0); MEAN CORPUSCULAR HEMOGLOBIN 26.5 PG (27.0-34.0); MEAN PLATELET VOLUME 7.8 FL (7.0-11.0); MONO % 10.1 % (0.0-8.0); MONOCYTE # 0.8 TH/MM3 (0-0.9); PLATELET COUNT 349 TH/MM3 (150-450); RED CELL DISTRIBUTION WIDTH 14.6 % (11.6-17.2)
[2018-03-13 05:50] LABS: ALBUMIN 2.5 GM/DL (3.4-5.0); AST (GOT) 38 U/L (15-37); BICARBONATE 27.5 MEQ/L (21.0-32.0); BLOOD UREA NITROGEN 25 MG/DL (7-18); CALCIUM 9.6 MG/DL (8.5-10.1); CHLORIDE 102 MEQ/L (98-107); CREATININE 1.14 MG/DL (0.60-1.30); GLOMERULAR FILTRATION RATE 63 ML/MIN (>89); GLUCOSE,RANDOM 87 MG/DL (74-106); MAGNESIUM 1.9 MG/DL (1.5-2.5); SODIUM (NA) 138 MEQ/L (136-145)
[2018-03-13 05:59] LABS: ALKALINE PHOSPHATASE 75 U/L (45-117); ALT (GPT) 24 U/L (12-78); FREE T4 1.51 NG/DL (0.76-1.46); PHOSPHORUS 2.2 MG/DL (2.5-4.9); TOTAL BILIRUBIN ADULT 0.4 MG/DL (0.2-1.0); TOTAL PROTEIN 6.8 GM/DL (6.4-8.2)
[2018-03-13] MEDS: SODIUM CHLORIDE 0.9% FLUSH 10 ML FLUSH IV FLUSH SCH ×2 (07:48→22:01)
[2018-03-13] MEDS: DOCUSATE SODIUM 50 MG/SENNA 8.6 MG TAB PO SCH ×2 (07:48→21:00)
[2018-03-13] MEDS: PANTOPRAZOLE SOD 40 MG DELAYED RELEASE TAB PO SCH (07:48)
--- NOTE | 2018-03-13 09:41 | RADRPT ---
EXAM DATE/TIME: 03/13/2018 09:02 [place] COMPARISON: MRI THORACIC SPINE W & W/O CONTRAST, March 12, 2018, 12:25. MRI LUMBAR SPINE W & W/O CONTRAST, March 12, 2018, 12:25. MRI CERVICAL SPINE W & W/O CONTRAST, March 12, 2018, 12:25. INDICATIONS : Mass. CONTRAST: 13 cc Omniscan (gadodiamide) IV MEDICAL HISTORY : Hypertension. Carcinoma, bladder. SURGICAL HISTORY : Right foot. ENCOUNTER: Initial ACUITY: 1 day PAIN SCORE: 0/10 LOCATION: cranial TECHNIQUE: Multiplanar, multisequence MRI of the brain was performed both prior to and following the administrat ion of paramagnetic contrast. FINDINGS: Diffusion weighted images demonstrate no evidence for acute infarction. There is motion artifact iden tified. This limits the study. There is moderate increased flair signal in the bilateral periventricu lar white matter greatest posteriorly. There is no evidence of intracranial hemorrhage. No obvious ma ss. No abnormal areas of enhancement are identified. CONCLUSION: Significant motion artifact with white matter disease and no evidence for mass on this exam. Zack Draper MD on March 13, 2018 at 9:37 Board Certified Radiologist. This report was verified electronically.
[2018-03-13] MEDS ORDERED: GADODIAMIDE PF 287 MG/ML 20 ML VIAL (for RAD MRI) IVCONTRAST ONE (09:43)
[2018-03-13 10:47] LABS: HEMOGLOBIN A1C 5.7 % (4.3-6.0)
--- NOTE | 2018-03-13 11:28 | HHI.PR ---
Subjective Remarks Patient is profoundly lethargic, very confused. Restless. Unable to provide any history. I attempted to call next of kin in the chart, no answer and unable to leave voicemail. I later met Shraddha his and one of his sons at bedside. Objective Vitals Vital Signs Date Time Temp Pulse Resp B/P (MAP) Pulse Ox O2 Delivery O2 Flow Rate FiO2 03/13/18 08:04 98.6 77 19 150/77 (101) 97 03/13/18 08:01 106 03/13/18 04:45 98.3 126 20 140/86 (104) 94 03/13/18 01:20 Nasal Cannula 2.00 03/13/18 00:46 98.4 100 20 146/76 (99) 94 03/13/18 00:15 97 03/12/18 21:09 98.5 136 20 155/63 (93) 95 03/12/18 19:56 03/12/18 19:20 88 20 120/57 (78) 98 Nasal Cannula 2.00 03/12/18 17:30 89 15 106/60 (75) 97 Nasal Cannula 2.00 03/12/18 13:30 90 15 104/62 (76) 97 Nasal Cannula 2.00 03/12/18 13:24 15 03/12/18 12:00 94 15 112/56 (74) 97 Nasal Cannula 2.00 I/O 03/12/18 03/12/18 03/12/18 03/13/18 03/13/18 03/13/18 07:00 15:00 23:00 07:00 15:00 23:00 Intake Total 1000 ml 1055 ml Balance 1000 ml 1055 ml Intake IV Total 1000 ml 1055 ml # Voids 1 Result Diagram: 03/13/18 0500 03/13/18 0500 Imaging Last Impressions Brain MRI 03/13/18 0000 Signed Impressions: Service Date/Time: Tuesday, March 13, 2018 09:02 - CONCLUSION: Significant motion artifact with white matter disease and no evidence for mass on this exam. Zack Draper MD Thoracic Spine MRI 03/12/18 0000 Signed Impressions: Service Date/Time: Monday, March 12, 2018 12:25 - CONCLUSION: 1. Almost complete replacement of the marrow of the T12 vertebral body with expansion of the vertebral body, left pedicle and left facet joint. There is retropulsion of the posterior wall of the vertebral body measuring approximately 8 mm as well as moderate to severe spinal stenosis and moderate cord compression at this level. Mild compression deformity of the T12 vertebral body is also noted. The findings are suggestive of metastatic disease at the T12 level. 2. Mild broad-based left paracentral disc bulge at T1-2 resulting in effacement of the anterior thecal sac but no spinal stenosis. Shekhar Doan MD Lumbar Spine MRI 03/12/18 0000 Signed Impressions: Service Date/Time: Monday, March 12, 2018 12:25 - CONCLUSION: 1. Expansile masses involving the spinous process of L3 as well as the vertebral body, left pedicle and left facet of T12 consistent with metastatic disease. 2. Severe spinal stenosis and moderate to severe bilateral foraminal narrowing at L4-5. 3. Moderate spinal stenosis and moderate bilateral foraminal narrowing at L3- L4. 4. Mild to moderate bilateral foraminal narrowing at L2-3. 5. Grade I anterolisthesis of L4 in relation to L5 and L3 in relation to L2. 6. Diffuse degenerative disc disease throughout the lumbar spine. Shekhar Doan MD Chest X-Ray 03/12/18 0000 Signed Impressions: Service Date/Time: Monday, March 12, 2018 10:33 - CONCLUSION: 1. Bibasilar atelectasis and/or infiltrates. 2. Marked narrowing of the right subacromial space suggesting rotator cuff pathology. 3. Degenerative changes and scoliosis of the thoracic spine. Shekhar Doan MD Cervical Spine MRI 03/12/18 0000 Signed Impressions: Service Date/Time: Monday, March 12, 2018 12:25 - CONCLUSION: Moderate canal stenoses at the C3-4 and C5-6 levels. No evidence of cord edema. I don't see any abnormal areas of enhancement to confirm metastatic disease to the cervical spine. James Lucas MD A/P Problem List: (1) Encephalopathy ICD Code: G93.40 - Encephalopathy, unspecified (2) Generalized weakness ICD Code: R53.1 - Weakness (3) Spinal cord compression due to malignant neoplasm metastatic to spine ICD Code: G95.20 - Unspecified cord compression; C79.51 - Secondary malignant neoplasm of bone Status: Acute (4) Lactic acidosis ICD Code: E87.2 - Acidosis (5) Renal insufficiency ICD Code: N28.9 - Disorder of kidney and ureter, unspecified (6) UTI (urinary tract infection) ICD Code: N39.0 - Urinary tract infection, site not specified (7) Urothelial cancer ICD Code: C68.9 - Malignant neoplasm of urinary organ, unspecified Assessment and Plan 77 Y/O male with metastatic urothelial cancer who has been declining at home. Patient was brought in due to inability to walk and worsening mental status. Long discussion with the patient's son and at bedside. They understand the severity of his current condition and wished to transition him to comfort care only with hospice. They would like him to at home as this would be his wish. Hospice consulted for comfort care and to help coordinate. Encephalopathy: +confusion on exam, baseline unknown, family reports worsening confusion over 3-4 days. In light of metastatic CA, MRI Brain obtained but showed significant artifacts. No definite mass noted. Generalized Weakness: progressive, now unable to ambulate per report, likely secondary to T12 compression from extensive metastatic disease. PT for eval/ tx. T12 Compression: secondary to underlying metastatic disease, MRI T/L-Spine w/ almost complete replacement of marrow of T12 by metastatic disease, severe spinal stenosis L4-5, s/p eval by Dr. Birmingham, recommendation for surgical intervention to prevent complete paralysis, however family has declined. Urothelial CA: following w/ Dr. Luque w/ Urology and Dr. Britton as outpatient, s/p eval by Dr. Lerner, not a candidate for aggressive therapy. Hospice recommended. Lactic Acidosis: Lactate 4.1, s/p IVF, resolved Abnormal urinalysis: Cultures negative. Discontinue antibiotics. Renal Insufficiency: Creatinine 1.83, no previous labs for comparison, IVF for hydration, repeat labs in a.m. DVT Prophylaxis: scds Discharge Planning Discharge with hospice once arrangements are made. Hospice consulted. Discussed with case management. Chelsey Olson MD Mar 13, 2018 11:28
--- NOTE | 2018-03-13 15:25 | PD.ONC.PN ---
Subjective Subjective Remarks Resting in bed. Agitated and encephalopathic. Family at bedside. Objective Data Date Time Temp Pulse Resp B/P (MAP) Pulse Ox O2 Delivery O2 Flow Rate FiO2 03/13/18 12:44 105 03/13/18 12:13 Nasal Cannula 2.00 03/13/18 11:30 98.3 105 20 154/78 (103) 94 03/13/18 08:04 98.6 77 19 150/77 (101) 97 03/13/18 08:01 106 03/13/18 04:45 98.3 126 20 140/86 (104) 94 03/13/18 01:20 Nasal Cannula 2.00 03/13/18 00:46 98.4 100 20 146/76 (99) 94 03/13/18 00:15 97 03/12/18 21:09 98.5 136 20 155/63 (93) 95 03/12/18 19:56 03/12/18 19:20 88 20 120/57 (78) 98 Nasal Cannula 2.00 03/12/18 17:30 89 15 106/60 (75) 97 Nasal Cannula 2.00 03/13/18 03/13/18 03/13/18 07:00 15:00 23:00 Intake Total 1055 ml Balance 1055 ml Result Diagram: 03/13/18 0500 03/13/18 0500 Laboratory Results Laboratory Tests Test 03/12/18 15:25 03/12/18 19:11 03/13/18 05:00 Urine Color YELLOW Urine Turbidity HAZY Urine pH 6.0 Urine Specific [place] 1.015 Urine Protein 30 mg/dL Urine Glucose (UA) NEG mg/dL Urine Ketones NEG mg/dL Urine Occult Blood MOD Urine Nitrite NEG Urine Bilirubin NEG Urine Urobilinogen LESS THAN 2.0 MG/DL Urine Leukocyte Esterase MOD Urine RBC 52 /hpf Urine WBC 15 /hpf Urine Squamous Epithelial Cells <1 /hpf Urine Bacteria RARE /hpf Urine Hyaline Casts 7 /lpf Urine Granular Casts 7 /lpf Urine Mucus FEW /lpf Microscopic Urinalysis Comment CULTURE INDICATED Lactic Acid Level 0.9 mmol/L 1.4 mmol/L White Blood Count 8.0 TH/MM3 Red Blood Count 3.70 MIL/MM3 Hemoglobin 9.8 GM/DL Hematocrit 29.7 % Mean Corpuscular Volume 80.4 FL Mean Corpuscular Hemoglobin 26.5 PG Mean Corpuscular Hemoglobin Concent 33.0 % Red Cell Distribution Width 14.6 % Platelet Count 349 TH/MM3 Mean Platelet Volume 7.8 FL Neutrophils (%) (Auto) 75.0 % Lymphocytes (%) (Auto) 13.3 % Monocytes (%) (Auto) 10.1 % Eosinophils (%) (Auto) 0.7 % Basophils (%) (Auto) 0.9 % Neutrophils # (Auto) 6.0 TH/MM3 Lymphocytes # (Auto) 1.1 TH/MM3 Monocytes # (Auto) 0.8 TH/MM3 Eosinophils # (Auto) 0.1 TH/MM3 Basophils # (Auto) 0.1 TH/MM3 CBC Comment DIFF FINAL Differential Comment Blood Urea Nitrogen 25 MG/DL Creatinine 1.14 MG/DL Random Glucose 87 MG/DL Total Protein 6.8 GM/DL Albumin 2.5 GM/DL Calcium Level 9.6 MG/DL Phosphorus Level 2.2 MG/DL Magnesium Level 1.9 MG/DL Alkaline Phosphatase 75 U/L Aspartate Amino Transf (AST/SGOT) 38 U/L Alanine Aminotransferase (ALT/SGPT) 24 U/L Total Bilirubin 0.4 MG/DL Sodium Level 138 MEQ/L Potassium Level 4.2 MEQ/L Chloride Level 102 MEQ/L Carbon Dioxide Level 27.5 MEQ/L Anion Gap 9 MEQ/L Estimat Glomerular Filtration Rate 63 ML/MIN Hemoglobin A1c 5.7 % Free Thyroxine 1.51 NG/DL Thyroid Stimulating Hormone 3rd Gen 0.589 uIU/ML Culture Results Microbiology Date/Time Source Procedure Growth Status 03/12/18 11:05 Blood Peripheral Aerobic Blood Culture - Preliminary NO GROWTH IN 1 DAY Resulted 03/12/18 11:05 Blood Peripheral Anaerobic Blood Culture - Preliminary NO GROWTH IN 1 DAY Resulted 03/12/18 11:00 Blood Peripheral Aerobic Blood Culture - Preliminary NO GROWTH IN 1 DAY Resulted 03/12/18 11:00 Blood Peripheral Anaerobic Blood Culture - Preliminary NO GROWTH IN 1 DAY Resulted 03/12/18 15:25 Urine Clean Catch Urine Culture - Preliminary NO GROWTH IN 24 HOURS. Resulted Imaging Studies Last 24 hours Impressions Brain MRI 03/13/18 0000 Signed Impressions: Service Date/Time: Tuesday, March 13, 2018 09:02 - CONCLUSION: Significant motion artifact with white matter disease and no evidence for mass on this exam. Zack Draper MD Administered Medications Medications (Trade) Dose Ordered Sig/Yusef Route PRN Reason Start Time Stop Time Status Last Admin Dose Admin Sodium Chloride 1,000 ml @ 100 mls/hr Q10H IV 03/12/18 17:23 03/13/18 12:29 Sodium Chloride (NS Flush) 2 ml BID IV FLUSH 03/12/18 21:00 03/13/18 07:48 Oxycodone/ Acetaminophen (Percocet 10-325 Mg) 1 tab Q6H PRN PO PAIN SCALE 6 TO 10 03/12/18 17:30 03/12/18 22:01 Lorazepam (Ativan Inj) 0.5 mg Q4H PRN IV PUSH AGITATION 03/12/18 19:45 03/13/18 08:31 Objective Remarks GENERAL: thin, chronically ill appearing man SKIN: Warm and dry. HEAD: Normocephalic. EYES: No scleral icterus. No injection or drainage. RESPIRATORY: . No accessory muscle use. NEUROLOGICAL: decreased strength in legs PSYCHIATRIC: agitated, encephalopathic Assessment/Plan Assessment 1. Metastatic urothelial carcinoma of the bladder. and son at bedside. Patient has had rapid decline in performance status and mentation over the past week. Family does not want to pursue aggressive treatment when patient will not be able to be cured. Patient would not be a candidate for aggressive therapy at this time. They report that patient would want a peaceful, natural at home. They support this desire. Hospice team has been consulted. Inpatient oncology team will continue to follow. Saniya Lerner MD Mar 13, 2018 15:25
[2018-03-13] MEDS: oxyCODONE/ACETAMINOPHEN 10 MG/325 MG TAB PO PRN (18:00)
[2018-03-13] MEDS ORDERED: [UNRECOGNIZED DRUG - OTHER] IV PUSH PRN (19:00)
[2018-03-13] MEDS ORDERED: HYDROMORPHONE IV PUSH PRN ×2 (19:00→19:15)
[2018-03-13] MEDS ORDERED: [UNRECOGNIZED DRUG - OTHER] IV PUSH PRN (19:15)
[2018-03-13] MEDS ORDERED: LORazepam 2 MG/ML VIAL IV PRN ×2 (19:15)
[2018-03-13] MEDS: HYDROMORPHONE IV PUSH SCH ×2 (22:03→23:59)
[2018-03-13] MEDS: [UNRECOGNIZED DRUG - OTHER] IV PUSH SCH ×2 (22:03→23:59)
[2018-03-14] VITALS (9 sets, daily range): BP systolic 135–176; BP diastolic 73–100; PULSE 102–113; RESP 16–20; TEMP 98–99.3; O2SAT 95–96
[2018-03-14] MEDS: LORazepam 2 MG/ML VIAL IV PUSH PRN ×2 (00:13→11:09)
[2018-03-14] MEDS: [UNRECOGNIZED DRUG - OTHER] IV PUSH SCH ×3 (04:10→11:09)
[2018-03-14] MEDS: HYDROMORPHONE IV PUSH SCH ×3 (04:10→11:09)
[2018-03-14] MEDS: SODIUM CHLORIDE 0.9% FLUSH 10 ML FLUSH IV FLUSH SCH (07:29)
[2018-03-14] MEDS: SODIUM CHLOR 0.9% 1000 ML INJ 1,000 ML IV SCH (07:29)
[2018-03-14] MEDS: PANTOPRAZOLE SOD 40 MG DELAYED RELEASE TAB PO SCH (07:30)
[2018-03-14] MEDS: DOCUSATE SODIUM 50 MG/SENNA 8.6 MG TAB PO SCH (07:30)
--- NOTE | 2018-03-14 08:48 | HHI.DS ---
Discharge Summary Admission Date Mar 12, 2018 at 17:27 Discharge Date: Mar 14, 2018 Admitting Diagnosis spinal cord compression from malig met lesion (1) Encephalopathy ICD Code: G93.40 - Encephalopathy, unspecified (2) Generalized weakness ICD Code: R53.1 - Weakness (3) Spinal cord compression due to malignant neoplasm metastatic to spine ICD Code: G95.20 - Unspecified cord compression; C79.51 - Secondary malignant neoplasm of bone Status: Acute (4) Lactic acidosis ICD Code: E87.2 - Acidosis (5) Renal insufficiency ICD Code: N28.9 - Disorder of kidney and ureter, unspecified (6) UTI (urinary tract infection) ICD Code: N39.0 - Urinary tract infection, site not specified (7) Urothelial cancer ICD Code: C68.9 - Malignant neoplasm of urinary organ, unspecified Procedures None Brief History - From Admission HPI form the admitting physician: This is a 77-year-old male with PMH of Urothelial CA, HTN and GERD who was brought to the ER by his son and for complaints of generalized weakness in addition to AMS. History is very limited as pt is unable to provide much information, no family available at this time. Per records, pt following w/ Dr. Luque w/ Urology, s/p Cystoscopy w/ TURBT 03/03/18, h/o Urothelial CA for which he follows w/ Dr. Britton. Pt has apparently had progressive weakness, now unable to ambulate. Also noted to be more confused. On arrival, BP 97/65, HR 113, O2 sat 96% on 2L NC, TAB 9.1. WBC 11.2. Creatinine 1.83, no previous labs for comparison. Lactic Acid 4.1. UA positive for UTI. CXR with bibasilar atelectasis. MRI C-spine moderate canal stenosis C3-C4 and C5-C6, no evidence of cord edema. MRI T-spine almost complete replacement of marrow of T12 vertebral body with expansion, retropulsion and posterior wall of vertebral body, mild compression deformity T12, findings suggestive of metastatic disease at T12 level. MRI L-spine expansile masses involving spinous processes of L3 is well as vertebral body, severe spinal stenosis and moderate severe bilateral foraminal narrowing L4-L5. S/p eval by Dr. Birmingham w/ [facility], recommendation for surgical intervention, however family has declined surgical intervention. CBC/BMP: 03/13/18 0500 03/13/18 0500 Significant Findings Laboratory Tests Test 03/12/18 10:10 03/12/18 11:05 03/12/18 15:25 03/12/18 19:11 Lactic Acid Level 4.1 mmol/L (0.4-2.0) White Blood Count 11.2 TH/MM3 (4.0-11.0) Red Blood Count 4.34 MIL/MM3 (4.50-5.90) Hemoglobin 11.2 GM/DL (13.0-17.0) Hematocrit 35.5 % (39.0-51.0) Mean Corpuscular Hemoglobin 25.8 PG (27.0-34.0) Mean Corpuscular Hemoglobin Concent 31.6 % (32.0-36.0) Neutrophils (%) (Auto) 78.0 % (16.0-70.0) Monocytes (%) (Auto) 11.0 % (0.0-8.0) Neutrophils # (Auto) 8.8 TH/MM3 (1.8-7.7) Monocytes # (Auto) 1.2 TH/MM3 (0-0.9) Ovalocytes 1+ (NORMAL) Acanthocytes 1+ (NORMAL) Blood Urea Nitrogen 34 MG/DL (7-18) Creatinine 1.83 MG/DL (0.60-1.30) Random Glucose 112 MG/DL (74-106) Albumin 2.6 GM/DL (3.4-5.0) Calcium Level 10.2 MG/DL (8.5-10.1) Aspartate Amino Transf (AST/SGOT) 60 U/L (15-37) Sodium Level 134 MEQ/L (136-145) Chloride Level 95 MEQ/L (98-107) Estimat Glomerular Filtration Rate 36 ML/MIN (>89) Urine Turbidity HAZY (CLEAR) Urine Protein 30 mg/dL (NEG-TRACE) Urine Occult Blood MOD (NEG) Urine Leukocyte Esterase MOD (NEG) Urine RBC 52 /hpf (0-3) Urine WBC 15 /hpf (0-5) Urine Bacteria RARE /hpf (NONE) Urine Mucus FEW /lpf (OCC) Test 03/13/18 05:00 Red Blood Count 3.70 MIL/MM3 (4.50-5.90) Hemoglobin 9.8 GM/DL (13.0-17.0) Hematocrit 29.7 % (39.0-51.0) Mean Corpuscular Hemoglobin 26.5 PG (27.0-34.0) Neutrophils (%) (Auto) 75.0 % (16.0-70.0) Monocytes (%) (Auto) 10.1 % (0.0-8.0) Blood Urea Nitrogen 25 MG/DL (7-18) Albumin 2.5 GM/DL (3.4-5.0) Phosphorus Level 2.2 MG/DL (2.5-4.9) Aspartate Amino Transf (AST/SGOT) 38 U/L (15-37) Estimat Glomerular Filtration Rate 63 ML/MIN (>89) Free Thyroxine 1.51 NG/DL (0.76-1.46) Imaging Last Impressions Brain MRI 03/13/18 0000 Signed Impressions: Service Date/Time: Tuesday, March 13, 2018 09:02 - CONCLUSION: Significant motion artifact with white matter disease and no evidence for mass on this exam. Zack Draper MD Thoracic Spine MRI 03/12/18 0000 Signed Impressions: Service Date/Time: Monday, March 12, 2018 12:25 - CONCLUSION: 1. Almost complete replacement of the marrow of the T12 vertebral body with expansion of the vertebral body, left pedicle and left facet joint. There is retropulsion of the posterior wall of the vertebral body measuring approximately 8 mm as well as moderate to severe spinal stenosis and moderate cord compression at this level. Mild compression deformity of the T12 vertebral body is also noted. The findings are suggestive of metastatic disease at the T12 level. 2. Mild broad-based left paracentral disc bulge at T1-2 resulting in effacement of the anterior thecal sac but no spinal stenosis. Shekhar Doan MD Lumbar Spine MRI 03/12/18 0000 Signed Impressions: Service Date/Time: Monday, March 12, 2018 12:25 - CONCLUSION: 1. Expansile masses involving the spinous process of L3 as well as the vertebral body, left pedicle and left facet of T12 consistent with metastatic disease. 2. Severe spinal stenosis and moderate to severe bilateral foraminal narrowing at L4-5. 3. Moderate spinal stenosis and moderate bilateral foraminal narrowing at L3- L4. 4. Mild to moderate bilateral foraminal narrowing at L2-3. 5. Grade I anterolisthesis of L4 in relation to L5 and L3 in relation to L2. 6. Diffuse degenerative disc disease throughout the lumbar spine. Shekhar Doan MD Chest X-Ray 03/12/18 0000 Signed Impressions: Service Date/Time: Monday, March 12, 2018 10:33 - CONCLUSION: 1. Bibasilar atelectasis and/or infiltrates. 2. Marked narrowing of the right subacromial space suggesting rotator cuff pathology. 3. Degenerative changes and scoliosis of the thoracic spine. Shekhar Doan MD Cervical Spine MRI 03/12/18 0000 Signed Impressions: Service Date/Time: Monday, March 12, 2018 12:25 - CONCLUSION: Moderate canal stenoses at the C3-4 and C5-6 levels. No evidence of cord edema. I don't see any abnormal areas of enhancement to confirm metastatic disease to the cervical spine. James Lucas MD Pt update on day of discharge Deteriorating. Mostly unresponsive. Family agreed to care center placement. Hospital Course 77 Y/O male with metastatic urothelial cancer who has been declining at home. Patient was brought in due to inability to walk and worsening mental status. Long discussion with the patient's son and at bedside. They understand the severity of his current condition and wished to transition him to comfort care only with hospice. Hospice consulted on the patient and arrangements were made to the Hospice care center. Evaluation course detailed below: Encephalopathy: +confusion on exam, baseline unknown, family reports worsening confusion over 3-4 days. In light of metastatic CA, MRI Brain obtained but showed significant artifacts. No definite mass noted. Generalized Weakness: progressive, now unable to ambulate per report, likely secondary to T12 compression from extensive metastatic disease. Pt. did not recover given underlying condition. T12 Compression: secondary to underlying metastatic disease, MRI T/L-Spine w/ almost complete replacement of marrow of T12 by metastatic disease, severe spinal stenosis L4-5, s/p eval by Dr. Birmingham, recommendation for surgical intervention to prevent complete paralysis, however family has declined. Urothelial CA: following w/ Dr. Luque w/ Urology and Dr. Britton as outpatient, s/p eval by Dr. Lerner, not a candidate for aggressive therapy. Hospice recommended. Lactic Acidosis: Lactate 4.1, s/p IVF, resolved Abnormal urinalysis: Cultures negative. Discontinue antibiotics. Renal Insufficiency: Creatinine 1.83, no previous labs for comparison, IVF for hydration Pt Condition on Discharge: Deteriorating Discharge Disposition: Hospice/ Home Discharge Time: > 30 minutes Discharge Instructions DIET: Follow Instructions for: As Tolerated, No Restrictions Activities you can perform: Regular-No Restrictions Chelsey Olson MD Mar 14, 2018 08:48
== END 2018-03-14 12:07 | disposition hospice, inpatient (51) | DRG 542 ==
LOC: NEPC 09:48 → NEDA 17:27 → N05B 20:20
PROVIDERS: ADMIT Family Medicine; ATTEND Family Medicine
DX: C79.51 Secondary malignant neoplasm of bone (principal); G93.40 Encephalopathy, unspecified; E87.2 Acidosis; G82.20 Paraplegia, unspecified; G95.20 Unspecified cord compression; C67.9 Malignant neoplasm of bladder, unspecified; N39.0 Urinary tract infection, site not specified; N28.9 Disorder of kidney and ureter, unspecified; I10 Essential (primary) hypertension; K21.9 Gastro-esophageal reflux disease without esophagitis; Z51.5 Encounter for palliative care; Z79.82 Long term (current) use of aspirin; Z79.891 Long term (current) use of opiate analgesic; Z79.899 Other long term (current) drug therapy; Z87.891 Personal history of nicotine dependence
CPT/HCPCS: 70553; 71045; 72156; 72157; 72158; 80053; 81001; 83036; 83605; 83735; 84100; 84439; 84443; 85025; 87040; 87086; 96361; 96374; 96375; 99292; A9577; A9579; J0696; J1170; J1650; J2060; J2405; J7030